=== PATIENT | female | born 1945 | race Caucasian/White ===

== ENCOUNTER 2023-02-14 09:39 | Inpatient (IN) | payer OTHER ==
[~2023-02-14] VITALS: Ht 177.8 cm; Wt 73.9 kg
[~2023-02-14 09:39] MED LIST: ESCITALOPRAM OXALATE 10 MG TABLET PO SCH
[2023-02-14 09:43] VITALS: BP_SYST 146
--- NOTE | 2023-02-14 09:45 | NUR ---
DR CARRERA AT BEDSIDE EXAMINING PATIENT UPON ARRIVAL TO ED
--- NOTE | 2023-02-14 09:48 | NUR ---
[facility] WITH RIGHT SIDED RIB PAIN 03/10. PATIENT STATES SHE HIT BACK OF HEAD WITH NO LOC, DENIES PAIN TO AREA. PUPILS PERRLA. AAOX4. MED HX HTN, DM, HF, COPD. VSS WITH BRADYCARDIA, RATE OF 49. REPORTED BY BLS CREW THAT HEART RATE IS VERY LOW AT BASELINE ACCORDING TO FACILITY. PATIENT CONFIRMS THIS.
--- NOTE | 2023-02-14 09:48 | NUR ---
Patient to ER bed 6 to gown for evaluation. Side rails up. Report given to VALENTINA REDD.
--- NOTE | 2023-02-14 09:49 | NUR ---
PATIENT OFF UNIT TO CT
--- NOTE | 2023-02-14 10:12 | NUR ---
PHLEBOTOMY AT BEDSIDE DRAWING LAB SAMPLES
[2023-02-14 10:29] LABS: BASOPHILS % (AUTO) 0.3 % (0.0-2.0); EOSINOPHILS # (AUTO) 0.1 K/uL (0.0-0.4); EOSINOPHILS % (AUTO) 1.6 % (0.0-4.0); HEMATOCRIT 34.4 % (36-48); HEMOGLOBIN 11.3 g/dL (12.0-16.0); LYMPHOCYTES # (AUTO) 1.6 K/uL (1.0-5.5); LYMPHOCYTES % (AUTO) 20.4 % (20.5-51.5); MEAN CORPUSCULAR HEMOGLOBIN 28 pg (27-31); MEAN CORPUSCULAR HGB CONC 33 % (32-36); MEAN CORPUSCULAR VOLUME 86 fL (79.0-98.0); MONOCYTES # (AUTO) 0.6 K/uL (0.0-1.0); MONOCYTES % (AUTO) 7.9 % (1.7-9.3); NEUTROPHILS # (AUTO) 5.5 K/uL (1.8-7.7); NEUTROPHILS % (AUTO) 69.8 % (40.0-70.0); PLATELET COUNT (AUTO) 233 K/uL (130-430); RED BLOOD CELL COUNT(AUTO) 3.99 MIL/uL (4.2-6.2); RED CELL DISTRIBUTION WIDTH 15.7 % (9.0-15.0); WHITE BLOOD COUNT (AUTO) 7.9 K/uL (4.8-10.8)
[2023-02-14 10:42] LABS: ANION GAP 9 (5-15); CALCIUM 8.5 mg/dL (8.4-11.0); CHLORIDE 105 mmol/L (98-107); CREATININE 0.88 mg/dL (0.55-1.30); GLUCOSE 105 mg/dL (70-99); UREA NITROGEN, BLOOD 24 mg/dL (8-21)
[2023-02-14 10:48] LABS: PROTHROMBIN TIME 10.8 SECS (9.5-12.5)
[2023-02-14 11:00] LABS: ALANINE AMINOTRANSFERASE 18 U/L (12-78); ALBUMIN 3.2 g/dL (3.4-4.8); ASPARTATE AMINOTRANSFERASE 16 U/L (10-37); TOTAL BILIRUBIN 0.7 mg/dL (0.0-1.0)
[2023-02-14] MEDS ORDERED: ASPIRIN 81 MG TABLET(ECOTRIN) PO ONE (11:30)
[2023-02-14] MEDS ORDERED: HYDROcodone/ACETAMIN 10-325 MG TAB PO PRN (12:00)
[2023-02-14] MEDS ORDERED: ONDANSETRON HCL 4 MG/2 ML VIAL IVP PRN (12:00)
[2023-02-14] MEDS ORDERED: MORPHINE 2 MG/ML INJ. SYRINGE IVP PRN (12:00)
--- NOTE | 2023-02-14 12:09 | NUR ---
Admit bed requested Patient will be admitted to care of Dr. JUNG. Admitted to TELE unit. Diagnosis ACUTE CORONARY SYNDROME Inpatient (Yes or No) YES Observation (Yes or No) NO Orientation concerns or request close to nursing station (Yes or No) NO Covid Status NA On vent or bipap NO Isolation requirements NO Needs a sitter NO From Home (Yes or if No enter name of facility) [facility] Requires Dialysis (Yes or No) NO Med Rec Completed (Yes of No) YES
[2023-02-14] MEDS ORDERED: NITROGLYCERIN 0.4 MG TAB.SUBL SL SCH (12:15)
[2023-02-14] MEDS ORDERED: LOSARTAN POTASSIUM 25 MG TABLET PO ONE (12:15)
[2023-02-14] MEDS ORDERED: ASPIRIN 81 MG TAB.CHEW PO ONE (12:15)
[2023-02-14] MEDS ORDERED: HEPARIN SODIUM,PORCINE 5,000 UNITS/ML VIAL SUBCUT ONE (12:15)
[2023-02-14] MEDS ORDERED: ATORVASTATIN 20 MG TABLET PO ONE (12:15)
[2023-02-14] MEDS ORDERED: CARV25TA55 PO (12:25)
[2023-02-14] MEDS ORDERED: LEVO112T5 PO (12:25)
[2023-02-14] MEDS ORDERED: FLUT1BLS10 PO (12:25)
[2023-02-14] MEDS ORDERED: LIP80 PO (12:25)
[2023-02-14] MEDS ORDERED: CYM30 PO (12:25)
[2023-02-14] MEDS ORDERED: FAMO-132 PO (12:25)
[2023-02-14] MEDS ORDERED: OMEP-268 PO (12:25)
[2023-02-14] MEDS ORDERED: POTA-197 PO (12:25)
[2023-02-14] MEDS ORDERED: MELO-89 PO (12:25)
[2023-02-14] MEDS ORDERED: LOSA100T4 PO (12:25)
[2023-02-14] MEDS ORDERED: FURO-149 PO (12:25)
[2023-02-14] MEDS ORDERED: NEU300 PO (12:25)
[2023-02-14] MEDS ORDERED: ALBU2.5V7 INH (12:25)
[2023-02-14] MEDS ORDERED: VITD2000 PO (12:25)
[2023-02-14] MEDS ORDERED: ASPI-1155 PO (12:25)
[2023-02-14] MEDS ORDERED: OLAN10TA71 PO (12:25)
[2023-02-14] MEDS ORDERED: CYAN100010 PO (12:25)
--- NOTE | 2023-02-14 13:20 | NUR ---
Patient will be admitted to care of DR JUNG. Admitted to TELE unit. Will go to room 124A. Belongings list completed. Complete and up to date summary report printed. SBAR report to be given at bedside with opportunity for questions.
[2023-02-14 13:31] VITALS: BP_SYST 180
--- NOTE | 2023-02-14 13:45 | NUR ---
MST Admit Nurse Notes: Patient laying in bed, A/O x 4, Amharic speaking. Patient breathing even and unlabored on room air. No pain, no distress, no SOB. Patient has RH 22g SL. Patient is on bedrest. Bed is locked in lowest position. Call light within reach, all needs met, will continue with plan of care. ER report taken from Jovani.
[2023-02-14 14:06] VITALS: BP_SYST 141
[2023-02-14 15:26] LABS: BILIRUBIN,URINE NEGATIVE (NEGATIVE); COLOR,URINE YELLOW (YELLOW); GLUCOSE,URINE NEGATIVE (NEGATIVE); KETONES,URINE NEGATIVE (NEGATIVE); LEUKOCYTE ESTERASE ,URINE NEGATIVE (NEGATIVE); NITRITE, URINE NEGATIVE (NEGATIVE); PH,URINE 7.5 (5.0-8.0); PROTEIN URINE NEGATIVE (NEGATIVE)
[2023-02-14 15:37] LABS: BLOOD, URINE TRACE (NEGATIVE); CLARITY/URINE HAZY (CLEAR)
[2023-02-14 15:38] LABS: BACTERIA,URINE FEW /HPF (None Seen); MUCUS,URINE None Seen /LPF (None Seen); RBC,URINE 0-3 /HPF (0-3); URINE AMORPHOUS PHOSPHATES 2+ /HPF (None Seen); WBC,URINE 0-3 /HPF (0-3)
--- NOTE | 2023-02-14 16:00 | NUR ---
Late Afternoon Nurse Notes: Patient in bed in stable condition. No pain, moderate distress, no SOB. Bed is locked in lowest position. Call light within reach, all needs met, will continue with plan of care. Watching blood pressure carefully. Will notify MD if it continues to reach higher levels (over 160) again.
--- NOTE | 2023-02-14 16:09 | NUR ---
CONSULTATION PAGED/CALLED Reason for Consultation: [] ACS Person Who was Notified: [] DR Mony TOLEDO Consulting Physician: [] DR Mony TOLEDO Manager Assessment Specialty: [] CARDIO Ordering Physician: [] DR JUNG
[2023-02-14] MEDS: hydrALAZINE HCL 20 MG/ML VIAL IVP PRN (16:12)
--- NOTE | 2023-02-14 17:04 | NUR ---
Nurse Notes: Patient put on a Purewick. Handling well. Demonstrated and explained how it works to patient.
--- NOTE | 2023-02-14 17:07 | NUR ---
Blood Pressure Notes: Patient's blood pressure was on the higher side earlier. Lyn, RN gave hydralazine IVP and it is now 140/75. Will continue to monitor.
--- NOTE | 2023-02-14 19:00 | NUR ---
Closing Nurse Notes: Patient stable, A/O x4, Portuguese speaking. Patient breathing even and unlabored on room air. No pain, no distress, no SOB. Bed is locked in lowest position. Call light within reach, all needs met, will endorse to night time nanny. Patient endorsed to Abimael.
--- NOTE | 2023-02-14 19:15 | NUR ---
OPENING NOTE REPORT RECEIVED FROM DAYSHIFT NURSE. PATIENT RECEIVED LYING IN BED, AWAKE, NO S/S OF ACUTE DISTRESS. BREATHING EVEN AND UNLABORED. HOB RAISED. IV SITE PATENT. CALL LIGHT WITH PATIENT. BED ALARM ON. BED IS LOCKED AND AT LOWEST POSITION. WILL CONTINUE TO MONITOR.
[2023-02-14 20:00] VITALS: BP_SYST 143
[2023-02-14] MEDS: HEPARIN SODIUM,PORCINE 5,000 UNITS/ML VIAL SUBCUT SCH (20:22)
--- NOTE | 2023-02-14 20:52 | NUR ---
CALLED DR ERICH EARLY:LOW BP INFORMED , BP TRENDING 80's/40's. ORDERED TO MONITOR BP AT THIS TIME AND ELEVATE LEGS. HOLD ANY BP MEDICATIONS. Addendum: 02/14/23 at 2052 by Five RegistryTRAMAINE RN DISREGARD NOTE. ENTERED FRO WRONG PATIENT.
[2023-02-14] MEDS: ACETAMINOPHEN 325 MG TABLET PO SCH (22:29)
--- NOTE | 2023-02-14 23:00 | NUR ---
ROUNDS PATIENT IN BED, RESTING AT THIS TIME. NO SIGNS OF DISCOMFORT. CHEST RISE AND FALL EVEN BILATERALLY. ALL NEEDS MET. WILL MONITOR.
[2023-02-15] VITALS: BP_SYST 145
[2023-02-15 05:39] LABS: BASOPHILS % (AUTO) 0.5 % (0.0-2.0); EOSINOPHILS # (AUTO) 0.1 K/uL (0.0-0.4); EOSINOPHILS % (AUTO) 1.9 % (0.0-4.0); HEMATOCRIT 35.4 % (36-48); HEMOGLOBIN 11.6 g/dL (12.0-16.0); LYMPHOCYTES % (AUTO) 29.6 % (20.5-51.5); MEAN CORPUSCULAR HEMOGLOBIN 28 pg (27-31); MEAN CORPUSCULAR HGB CONC 33 % (32-36); MEAN CORPUSCULAR VOLUME 86 fL (79.0-98.0); MONOCYTES # (AUTO) 0.5 K/uL (0.0-1.0); MONOCYTES % (AUTO) 7.8 % (1.7-9.3); NEUTROPHILS % (AUTO) 60.2 % (40.0-70.0); PLATELET COUNT (AUTO) 232 K/uL (130-430); RED CELL DISTRIBUTION WIDTH 15.6 % (9.0-15.0); WHITE BLOOD COUNT (AUTO) 6.6 K/uL (4.8-10.8)
[2023-02-15 06:07] LABS: ALANINE AMINOTRANSFERASE 18 U/L (12-78); ALBUMIN 3.1 g/dL (3.4-4.8); ANION GAP 6 (5-15); ASPARTATE AMINOTRANSFERASE 17 U/L (10-37); CALCIUM 8.5 mg/dL (8.4-11.0); CHLORIDE 106 mmol/L (98-107); GLUCOSE 108 mg/dL (70-99); TOTAL BILIRUBIN 0.9 mg/dL (0.0-1.0); UREA NITROGEN, BLOOD 20 mg/dL (8-21)
--- NOTE | 2023-02-15 06:42 | NUR ---
CLOSING NOTE PATIENT IN BED, RESTING AT THIS TIME. NO S/S OF ACUTE DISTRESS. BREATHING EVEN AND UNLABORED. HOB RAISED. IV SITE PATENT, NO SIGNS OF INFILTRATION OR INFECTION NOTED. ALL NEEDS MET THROUGHOUT SHIFT. FALL,SAFETY PRECAUTIONS MAINTAINED THROUGHOUT SHIFT. WILL CONTINUE TO MONITOR UNTIL PATIENT CARE IS ENDORSED TO ONCOMING DAYSHIFT NURSE.
[2023-02-15 07:10] VITALS: BP_SYST 164
--- NOTE | 2023-02-15 07:35 | NUR ---
OPENING NOTES PATIENT IS RESTING. NO PAIN, NO DISTRESS, NO SOB NOTED. PATIENT BREATHING UNLABORED ON RA SA02 93%. PURWICK RUNNING WELL. SAFETY PRECAUTION IN PLACE. BED ALARM WITHIN REACH. BED LOCKED IN LOWEST POSITION. WILL CONTINUE WITH PLAN OF CARE.
[2023-02-15] MEDS: CITALOPRAM HYDROBROMIDE 20 MG TABLET PO SCH (09:11)
[2023-02-15] MEDS: ASPIRIN 81 MG TAB.CHEW PO SCH (09:13)
[2023-02-15] MEDS: HEPARIN SODIUM,PORCINE 5,000 UNITS/ML VIAL SUBCUT SCH ×2 (09:14→21:06)
[2023-02-15] MEDS: LOSARTAN POTASSIUM 25 MG TABLET PO SCH (09:16)
[2023-02-15] MEDS: ATORVASTATIN 20 MG TABLET PO SCH (09:17)
[2023-02-15 09:30] VITALS: BP_SYST 164
[2023-02-15] MEDS ORDERED: METOPROLOL SUCCINATE 50 MG TAB.SR.24H (TOPROL XL) PO ONE ×2 (09:59→10:00)
--- NOTE | 2023-02-15 12:00 | NUR ---
ROUNDING NOTES PATIENT IS RESTING. NO PAIN, NO DISTRESS, NO SOB NOTED. ALL NEED MET AT THIS TIME. CALL LIGHT WITHIN REACH. BED LOCKED IN LOWEST POSITION. WILL CONTINUE WITH PLAN OF CARE.
[2023-02-15 12:34] VITALS: BP_SYST 154
--- NOTE | 2023-02-15 16:00 | NUR ---
ROUNDING NOTES PATIENT IS RESTING. BREATHING UNLABORED ON RA. NO PAIN, NO DISTRESS, NO SOB NOTED. PURWICK RUNNING WELL. ALL NEED MET AT THIS TIME. BED ALARM WITHIN REACH. BED LOCKED IN LOWEST POSITION. WILL CONTINUE WITH PLAN OF CARE.
[2023-02-15 16:42] VITALS: BP_SYST 151
--- NOTE | 2023-02-15 18:36 | NUR ---
CLOSING NOTES PATIENT EATING DINNER. BREATHING UNLABORED ON RA. NO PAIN, NO DISTRESS, NO SOB NOTED. PURWICK RUNNING WELL. ALL NEEDS MET AT THIS TIME. SAFETY PRECAUTIONS IN PLACE. BED ALARM WITHIN REACH. BED LOCKED IN LOWEST POSITION. WILL ENDORSE TO JEWEL LATHE OPERATOR NURSE.
[2023-02-15 20:00] VITALS: BP_SYST 188
[2023-02-15] MEDS ORDERED: ATORVASTATIN 20 MG TABLET PO SCH (21:00)
[2023-02-15] MEDS: hydrALAZINE HCL 20 MG/ML VIAL IVP PRN (21:03)
--- NOTE | 2023-02-16 00:18 | NUR ---
BP elevated BP elevated 199/81 and pt c/o headache. Called and spoke with Dr. Mia Aguilar re elevated BP and Hydralazine 10mg IVP was already given at 2100. Received order for Hydralazine 20mg IVP x one.
[2023-02-16] MEDS: ACETAMINOPHEN 325 MG TABLET PO SCH (00:26)
[2023-02-16] MEDS ORDERED: hydrALAZINE HCL 20 MG/ML VIAL IVP ONE (00:30)
[2023-02-16] MEDS ORDERED: hydrALAZINE HCL 20 MG/ML VIAL ONE (00:40)
[2023-02-16 01:18] VITALS: BP_SYST 186
[2023-02-16] MEDS: hydrALAZINE HCL 20 MG/ML VIAL IVP PRN (05:00)
[2023-02-16 08:00] VITALS: BP_SYST 183
--- NOTE | 2023-02-16 08:00 | NUR ---
OPENING NOTES: PATIENT IN BED WITH EYES CLOSED. RESPONDED TO NAME. NO S/S OF DISTRESS OR PAIN REPORTED. BREATHING IS EVEN AND UNLABORED ON RA 96%. EDUCATED PATIENT ON USE OF CALL LIGHT. PATIENT VERBALIZED UNDERSTANDING. ALL NEEDS MET AT THIS TIME, SAFETY CHECKS MADE AND CALL LIGHT WITHIN REACH.
[2023-02-16] MEDS: ATORVASTATIN 20 MG TABLET PO SCH (08:17)
[2023-02-16] MEDS: ASPIRIN 81 MG TAB.CHEW PO SCH (08:17)
[2023-02-16] MEDS: CITALOPRAM HYDROBROMIDE 20 MG TABLET PO SCH (08:17)
[2023-02-16] MEDS: LOSARTAN POTASSIUM 25 MG TABLET PO SCH (08:17)
[2023-02-16] MEDS: METOPROLOL SUCCINATE 50 MG TAB.SR.24H (TOPROL XL) PO SCH (08:18)
[2023-02-16] MEDS: HEPARIN SODIUM,PORCINE 5,000 UNITS/ML VIAL SUBCUT SCH ×2 (08:19→21:00)
--- NOTE | 2023-02-16 09:50 | NUR ---
DR MARIVEL BARAJAS AT PATIENT BEDSIDE. ORDERED INCENTIVE SPIROMETER. EXPLAINED TO PATIENT HOW TO USE INCENTIVE SPIROMETER AND THEN HAD PATIENT DO A RETURN DEMONSTRATION. PATIENT USED INCENTIVE SPIROMETER CORRECTLY. INSTRUCTED PATIENT TO USE IT FREQUENTLY THROUGHOUT THE DAY. PATIENT VERBALIZED UNDERSTANDING. Addendum: 02/16/23 at [address]is LVN Dr Lees not Dr Morillo
[2023-02-16 09:53] VITALS: BP_SYST 151
--- NOTE | 2023-02-16 09:53 | NUR ---
PATIENT BLOOD PRESSURE THIS MORNING WAS 183/90. AFTER ADMINISTERING PATIENT'S TOPROL XL AND COZAAR IN THE MORNING PATIENT BLOOD PRESSURE IS NOW AT 151/76.
--- NOTE | 2023-02-16 09:56 | NUR ---
CONSULTATION PAGED/CALLED Reason for Consultation: RIB FX AND PULM HTN Person Who was Notified: DR PATRICK IN PERSON AND FORTINO IN OFFICE Consulting Physician: AMAN PATRICK Ordering Physician: HARRY BEARD
[2023-02-16 10:38] LABS: BASOPHILS % (AUTO) 0.4 % (0.0-2.0); HEMATOCRIT 39.4 % (36-48); HEMOGLOBIN 12.9 g/dL (12.0-16.0); LYMPHOCYTES # (AUTO) 0.9 K/uL (1.0-5.5); LYMPHOCYTES % (AUTO) 9.7 % (20.5-51.5); MEAN CORPUSCULAR HEMOGLOBIN 28 pg (27-31); MEAN CORPUSCULAR HGB CONC 33 % (32-36); MEAN CORPUSCULAR VOLUME 86 fL (79.0-98.0); MONOCYTES # (AUTO) 0.3 K/uL (0.0-1.0); MONOCYTES % (AUTO) 2.9 % (1.7-9.3); NEUTROPHILS # (AUTO) 8.1 K/uL (1.8-7.7); PLATELET COUNT (AUTO) 265 K/uL (130-430); RED BLOOD CELL COUNT(AUTO) 4.58 MIL/uL (4.2-6.2); RED CELL DISTRIBUTION WIDTH 15.5 % (9.0-15.0); WHITE BLOOD COUNT (AUTO) 9.3 K/uL (4.8-10.8)
[2023-02-16 10:43] LABS: ALANINE AMINOTRANSFERASE 14 U/L (12-78); ALBUMIN 3.4 g/dL (3.4-4.8); ANION GAP 6 (5-15); ASPARTATE AMINOTRANSFERASE 23 U/L (10-37); CALCIUM 8.8 mg/dL (8.4-11.0); CHLORIDE 103 mmol/L (98-107); CREATININE 0.74 mg/dL (0.55-1.30); GLUCOSE 148 mg/dL (70-99); TOTAL BILIRUBIN 0.9 mg/dL (0.0-1.0); UREA NITROGEN, BLOOD 15 mg/dL (8-21)
[2023-02-16] MEDS ORDERED: amLODIPine BESYLATE 10 MG TABLET PO ONE (13:15)
--- NOTE | 2023-02-16 13:35 | NUR ---
PATIENT IN BED WITH EYES CLOSED. RESPONDED TO NAME. HAD PATIENT USE INCENTIVE SPIROMETER. PATIENT BLOOD PRESSURE IS 121/55. NO S/S OF DISTRESS OR PAIN REPORTED. BREATHING IS EVEN AND UNLABORED ON RA 97%. ALL NEEDS MET AT THIS TIME, SAFETY CHECKS MADE AND CALL LIGHT WITHIN REACH.
[2023-02-16] MEDS: hydrALAZINE HCL 25 MG TABLET PO SCH ×2 (14:00→22:00)
--- NOTE | 2023-02-16 14:43 | NUR ---
PATIENT BLOOD PRESSURE AT 100/49 AND HEART RATE 59. HELD 2PM ASPRESOLINE. HAD PATIENT UTILIZE INCENTIVE SPIROMETER. ALL NEEDS MET AT THIS TIME, SAFETY CHECKS MADE AND CALL LIGHT WITHIN REACH.
--- NOTE | 2023-02-16 15:45 | NUR ---
patient in bed with eyes closed resting. no s/s of distress or pain noted. breathing is even and unlabored on ra. safety checks made and call light within reach.
--- NOTE | 2023-02-16 19:00 | NUR ---
patient in bed talking with family at bedside. no s/s of distress or pain reported. breathing is even and unlabored on 4l nc. osuna cath is draining to gravity. patient has on scd's. all needs met at this time, safety checks made and call light within reach. will endorse to senior training specialist nurse. Addendum: 02/16/23 at 1902 by Martha Solis LVN wrong patient
--- NOTE | 2023-02-16 19:03 | NUR ---
closing notes: patient in bed with eyes closed. responded to name. no s/s of distress or pain reported. breathing is even and unlabored on ra 97%. reminded patient to use incentive spirometer. patient verbalized understanding. all needs met at this time, safety checks made and call light within reach. will endorse to mine shifter nurse.
[2023-02-16 20:00] VITALS: BP_SYST 139
[2023-02-17 00:56] VITALS: BP_SYST 154
[2023-02-17 04:00] VITALS: BP_SYST 160
[2023-02-17] MEDS: hydrALAZINE HCL 25 MG TABLET PO SCH ×2 (05:44→14:43)
[2023-02-17 06:53] LABS: ALANINE AMINOTRANSFERASE 21 U/L (12-78); ALBUMIN 3.3 g/dL (3.4-4.8); ANION GAP 7 (5-15); ASPARTATE AMINOTRANSFERASE 28 U/L (10-37); CALCIUM 8.7 mg/dL (8.4-11.0); CHLORIDE 104 mmol/L (98-107); CREATININE 0.74 mg/dL (0.55-1.30); GLUCOSE 119 mg/dL (70-99); TOTAL BILIRUBIN 1.2 mg/dL (0.0-1.0); UREA NITROGEN, BLOOD 17 mg/dL (8-21)
[2023-02-17 07:02] LABS: PHOSPHORUS 3.4 mg/dL (2.7-4.5)
[2023-02-17 07:09] LABS: BASOPHILS % (AUTO) 0.2 % (0.0-2.0); EOSINOPHILS % (AUTO) 0.1 % (0.0-4.0); HEMATOCRIT 37.1 % (36-48); HEMOGLOBIN 12.3 g/dL (12.0-16.0); LYMPHOCYTES # (AUTO) 1.7 K/uL (1.0-5.5); LYMPHOCYTES % (AUTO) 16.5 % (20.5-51.5); MEAN CORPUSCULAR HEMOGLOBIN 29 pg (27-31); MEAN CORPUSCULAR HGB CONC 33 % (32-36); MEAN CORPUSCULAR VOLUME 86 fL (79.0-98.0); MONOCYTES # (AUTO) 0.8 K/uL (0.0-1.0); MONOCYTES % (AUTO) 7.6 % (1.7-9.3); NEUTROPHILS # (AUTO) 7.8 K/uL (1.8-7.7); NEUTROPHILS % (AUTO) 75.6 % (40.0-70.0); PLATELET COUNT (AUTO) 256 K/uL (130-430); RED BLOOD CELL COUNT(AUTO) 4.32 MIL/uL (4.2-6.2); RED CELL DISTRIBUTION WIDTH 15.7 % (9.0-15.0); WHITE BLOOD COUNT (AUTO) 10.3 K/uL (4.8-10.8)
[2023-02-17] MEDS ORDERED: amLODIPine BESYLATE 10 MG TABLET PO SCH (09:00)
[2023-02-17] MEDS: HEPARIN SODIUM,PORCINE 5,000 UNITS/ML VIAL SUBCUT SCH (10:18)
[2023-02-17] MEDS: METOPROLOL SUCCINATE 50 MG TAB.SR.24H (TOPROL XL) PO SCH (10:19)
[2023-02-17] MEDS: LOSARTAN POTASSIUM 25 MG TABLET PO SCH (10:20)
[2023-02-17] MEDS: ASPIRIN 81 MG TAB.CHEW PO SCH (10:22)
[2023-02-17] MEDS: ATORVASTATIN 20 MG TABLET PO SCH (10:25)
[2023-02-17] MEDS: CITALOPRAM HYDROBROMIDE 20 MG TABLET PO SCH (10:26)
[2023-02-17 11:35] VITALS: BP_SYST 112
--- NOTE | 2023-02-17 13:20 | NUR ---
PHYSICAL THERAPY CO-SIGN The Physical Therapy Progress Notes documented by Liability Claims Representative have been reviewed. Reviewed/Co-Signed by: Remington Dickerson Documentation Done by:KENTON PETERSON Addendum: 02/17/23 at 1320 by Remington Dickerson PT Amended: Links added.
[2023-02-17 16:46] VITALS: BP_SYST 110
--- NOTE | 2023-02-17 17:55 | NUR ---
End of Shift Summary: Patient has been doing well throughout the day. Early in shift, patient got up to bedside commode and stood up and exercised with PT. Patient was in good spirits and stated she felt well. Patient seen by MD and was discharged back to facility. RN called report and at this time patient is waiting for transportation back to [facility].
[2023-02-17 18:30] VITALS: BP_SYST 150
== END 2023-02-17 19:05 | DRG 184 ==
LOC: SED 09:39 → STU 11:56 → SMU 02-17 18:35
PROVIDERS: ADMIT Family Medicine; ATTEND Specialist
DX: S22.41XA Multiple fractures of ribs, right side, initial encounter for closed fracture (principal); I43 Cardiomyopathy in diseases classified elsewhere; S26.91XA Contusion of heart, unspecified with or without hemopericardium, initial encounter; R55 Syncope and collapse; I44.7 Left bundle-branch block, unspecified; I87.2 Venous insufficiency (chronic) (peripheral); I87.8 Other specified disorders of veins; F41.9 Anxiety disorder, unspecified; I95.1 Orthostatic hypotension; F03.90 Unspecified dementia, unspecified severity, without behavioral disturbance, psychotic disturbance, mood disturbance, and anxiety; W18.39XA Other fall on same level, initial encounter; Z66 Do not resuscitate; R00.1 Bradycardia, unspecified; D64.9 Anemia, unspecified; Z79.82 Long term (current) use of aspirin; Z79.899 Other long term (current) drug therapy; Y93.89 Activity, other specified; Y92.89 Other specified places as the place of occurrence of the external cause; Y99.8 Other external cause status; T42.6X5A Adverse effect of other antiepileptic and sedative-hypnotic drugs, initial encounter
CPT/HCPCS: 36415; 70450-TC; 71250-TC; 76376; 80053; 81000; 82550; 83605; 83735; 84100; 84484; 85025; 85610-TC; 85730-TC; 87081; 93005; 93306; 93970; 97110-GP; 97112-GP; 97116-GP; 97530-GP; 99285; G0378; J0360; J1644; J2405